=== PATIENT | male | born 1950 | race Caucasian/White ===

== ENCOUNTER 2018-07-20 07:29 | Day surgery (SDC) | payer MEDICARE, OTHER, SELFPAY ==
--- NOTE | 2018-07-20 | PATH_ITS ---
[facility] Accession Number: [id number] . 01 Material submitted: . ASCENDING COLON POLYP AT 70 . 02 Diagnosis: Ascending Colon, Polyp at 70, Biopsy: Tubular adenoma. MRV/07/22/2018 . 02 Electronically signed: . Karen Bueno MD, Pathologist NPI- [id number] . 01 Gross description: . ASCENDING COLON POLYP AT 70: Received in formalin is 1 fragment(s) of bey, soft tissue measuring 0.3 x 0.3 x 0.2 cm submitted entirely in 1 cassette(s) /CKI /CKI . 02 Pathologist provided ICD-10: D12.2 . 02 CPT . 993001 Performed at: 01 [facility] [address] [id number] MD Tom Barahona MD Phone: [phone] Performed at: 02 [facility] [address] [place], [place] [id number] MD Erasmo Sutton MD Phone: [phone]
[2018-07-20 08:08] VITALS: BP 144/83; PULSE 52; RESP 16; TEMP 35.7; O2SAT 99; BMI 26.6
[2018-07-20] MEDS: SODIUM CHLORIDE 0.9% 1,000 ML 200 ML IV (08:20)
--- NOTE | 2018-07-20 08:56 | PM.HP.1 ---
History of Present Illness Date Patient Seen: 07/20/18 Time Patient Seen: 08:56 Chief complaint: 90052 Narrative: 67-year-old male who last underwent colonoscopy 10 years ago for surveillance purposes. He reports that the study was normal at that time. He presents now for surveillance. On further history today he has no new gastrointestinal complaints. Denies any nausea, vomiting, loss of appetite, unexplained weight loss, abdominal pain, change in bowel habits, diarrhea, constipation, melena, hematochezia, or bright red blood per rectum. Patient History Medical History Chronic back pain (Chronic 1987) Coronary artery disease (Chronic 1996) Generalized headaches (Chronic 1994) Gout (Chronic 2013) Hearing loss (Chronic 1989) Hypertension (Chronic 1996) Sleep apnea (Chronic 2016) Tinnitus of both ears (Chronic 1994) Chickenpox (Resolved) Measles (Resolved) Mumps (Resolved) Surgical History History of colonoscopy (Acute) Family & Social History Family History: Reviewed 07/20/18 by Ambrose Gonzalez MD Social History: household members spouse Meds Home Medications Medication Instructions Recorded Confirmed Type aspirin 81 mg PO QDAY #0 02/26/18 07/20/18 History atorvastatin 80 mg PO QDAY #0 02/26/18 07/20/18 History cholecalciferol (vitamin D3) 5,000 unit PO QDAY #0 02/26/18 07/20/18 History cyclobenzaprine 10 mg PO DAILY #0 02/26/18 07/20/18 History hydrochlorothiazide 25 mg PO QDAY #0 02/26/18 07/20/18 History ibuprofen 800 mg PO DAILY #0 02/26/18 07/20/18 History pneumoc 13-vianney conj-dip cr(PF) 0.5 ml IM X1 #1 ea 02/26/18 Rx [Prevnar 13 (PF)] varicella-zoster gE-AS01B (PF) 0.5 ml IM X1 #1 ea 02/26/18 Rx [Shingrix (PF)] verapamil 240 mg PO QDAY #0 02/26/18 07/20/18 History Allergies Allergy/AdvReac Type Severity Reaction Status Date / Time No Known Allergies Allergy Uncoded 07/20/18 07:48 Review of Systems Review of Systems All systems reviewed & are unremarkable except as noted in HPI and below Exam Vital Signs (past 8 hours): - 07/20/18 08:08 Temperature 96.2 F L Pulse Rate 52 L Respiratory Rate 16 Blood Pressure 144/83 H Pulse Oximetry 99 Oxygen Delivery Method Room Air Narrative Exam Narrative: Well-nourished well-developed male in no acute distress lying comfortably in the gurney. Alert oriented x3. is at the bedside for my entire visit. Sclera nonicteric Neck is supple Chest clear to auscultation. Regular rate and rhythm. Abdomen soft, nondistended, nontender. Extremities show no clubbing, cyanosis, or edema Objective Labs Labs: No recent radiographic or laboratory studies for review Assessment & Plan Plan: Assessment/Plan Narrative: 67-year-old male require colorectal surveillance since it has been 10 years from his prior examination. Colonoscopy is currently recommended. Technical details of the procedure were discussed. Risks, benefits, alternatives were explained. Risks including but not limited to sedation, aspiration, bleeding, pain, missed lesion, incomplete examination, need for further radiographic studies, colonic perforation, need for major abdominal surgery, and all attendant risks of major surgery were explained at length. All questions were answered to his satisfaction, and the patient voiced understanding. Consent was placed on the chart. We will proceed as above.
--- NOTE | 2018-07-20 08:59 | PM.PREOP ---
Pre-operative Note Interval Note Pre-op Check: Yes History & Physical Reviewed by Physician, Yes Exam Performed and Yes History & Physical exam performed today by Physician Changes: No H&P completed within 30 days and has changed as indicated here:: Patient seen and examined today. History physical examination documented and placed on the chart. Proceed with colonoscopy today as planned. ASA Class (for procedural sedation): II
[2018-07-20] MEDS: MIDAZOLAM 5 MG/5 ML VIAL IV (09:00)
[2018-07-20] MEDS: fentaNYL 250 MCG/5 ML INJ IV (09:00)
--- NOTE | 2018-07-20 09:24 | PM.OP.ENDO ---
Operative Date/Time/Diagnoses Date of procedure: 07/20/18 Time of procedure: 09:25 Pre-op diagnosis: Colorectal screening Post-op diagnosis: other (Colon polyp) Procedure & Clinicians Study performed: 1. Sedation per surgeon 2. Colonoscopy with cold forceps polypectomy Same procedure as scheduled: Yes Indications: 67-year-old male with prior colonoscopy 10 years ago who presents for colorectal surveillance. Colonoscopy is once again recommended. Surgeon: Ambrose Gonzalez Procedure Notes SCOAP/Timeout: Yes Procedure in detail: After obtaining informed consent, the patient was brought to the GI suite and placed in the left lateral decubitus position on the examination table. After placement of appropriate monitors, the patient was given incremental doses of Versed and Fentanyl until an appropriate level of sedation was achieved. A time out was held per SCOAP protocol. A digital rectal examination was performed and did not reveal any masses or obstructing lesions. The colonoscope was gently passed into the patient's anus and the entire colon navigated to the level of the cecum with minimal difficulty. Once in the cecum, the scope was withdrawn being sure to go before and beyond all mucosal folds and prominences and get an excellent examination. The findings are noted above. At the level of the rectal vault, the scope was retroflexed and the internal anal canal was examined. The scope was straightened and air aspirated from the colon. The instrument was removed from the patient's body and the procedure was concluded. The patient was allowed to awaken from sedation without difficulty and taken to the post-anesthesia care unit in good condition. Scope withdrawal time: 8:34 min Sedation minutes: 26 Findings: polyp (Ascending colon polyp at 70 cm) Specimen(s): other (Ascending colon polyp at 70 cm) Complications: none Recommendations: Colonscopy in 5 years and Will call with biopsy results Plan for aftercare: Discharged home Follow up: as needed Disposition: PACU
[2018-07-20 09:31] VITALS: BP 112/67; PULSE 53; RESP 14; TEMP 36.2; O2SAT 96
[2018-07-20 09:35] VITALS: BP 106/66; PULSE 48; RESP 9; O2SAT 94
[2018-07-20 09:41] VITALS: BP 103/65; PULSE 58; RESP 15; TEMP 36.6; O2SAT 95
[2018-07-20 09:48] VITALS: BP 106/70; PULSE 59; RESP 15; TEMP 36.7; O2SAT 94
[2018-07-20 10:13] VITALS: BP 122/74; PULSE 53; RESP 16; TEMP 36.1; O2SAT 99
== END 2018-07-20 10:20 | disposition home or self-care (01) ==
PROVIDERS: PCP Family Medicine; Visit Provider Surgery
PROC: 0DJD8ZZ Inspection of Lower Intestinal Tract, Via Natural or Artificial Opening Endoscopic (ICD-10-PCS; CPT 45378; principal; 2018-07-20 08:45)
DX: Z12.11 Encounter for screening for malignant neoplasm of colon (principal); D12.2 Benign neoplasm of ascending colon
CPT/HCPCS: 45380; 88305; 99152; 99153; J2250; J3010

== ENCOUNTER 2020-01-30 14:50 | Emergency (ER) | payer MEDICARE, OTHER, SELFPAY ==
[2020-01-30 14:55] VITALS: BP 177/85; PULSE 66; RESP 20; TEMP 36.1; O2SAT 96
--- NOTE | 2020-01-30 16:29 | DI.RAD.S_ITS ---
PROCEDURE: XR LUMBAR SPINE 2-3V INDICATIONS: pain TECHNIQUE: 3 views of the lumbar spine were acquired. COMPARISON: [facility], , -SPINE 2-3 VIEWS, 02/06/2007, 9:03. FINDINGS: Bones: 6 [id number] vertebrae are present. There is normal bony alignment. No vertebral body compression fractures. No suspicious bony lesions. Degenerative changes are present in the lower lumbar spine including intervertebral disc space narrowing, endplate sclerosis, osteophytosis, and facet sclerosis. These findings are new when compared with the prior plain film dated 02/06/07. Soft tissues: Overlying bowel gas pattern is normal. Trace atheromatous calcifications are present within the abdominal aorta. IMPRESSION: Mild degenerative change and aortic atherosclerosis, both of which have are new when compared with the study from 2006. Dictated by: Jessica Moody M.D. on 01/30/2020 at 15:54 Approved by: Jessica Moody M.D. on 01/30/2020 at 15:58
[2020-01-30] MEDS: CYCLOBENZAPRINE 10 MG TABLET PO (16:51)
[2020-01-30] MEDS: KETOROLAC 60 MG/2 ML VIAL 30 MG IM (16:51)
[2020-01-30] MEDS: LIDOCAINE PATCH 1 EACH ADH..PATCH TOP (16:56)
[2020-01-30] MEDS: HYDROCODONE/ACET 5/325 TABLET 1 TAB PO (17:39)
--- NOTE | 2020-01-30 18:03 | ED_ITS ---
HPI - Back Pain/Injury <Savanna Fuentes, ORTHOTICS PROSTHETICS ASSISTANT-BC - Last Filed: 01/30/20 18:52> General Chief Complaint: Back Pain/Injury Stated Complaint: Lower Back Pain Time Seen by Provider: 01/30/20 16:17 Source: patient and family Mode of arrival: Ambulatory Limitations: no limitations History of Present Illness HPI Narrative: The patient is a 69-year-old male nonsmoker with history of chronic midline back pain who presents with a chief complaint of lower back pain. He states it started getting bed 2 days ago, when he bent over from his chair to pick something up. He denies any incontinence of bowel, incontinence of bladder, saddle anesthesia, numbness or tingling. He was taking Flexeril and ibuprofen for the past 2 days, but has not had anything so far today. He states that this is recurrent, but he has had issues with this before. However it is usually much improved after single dose of Flexeril. He states it is worse with movement, better when he is lying flat on his back with his knees bent. He has no fever, no history of cancer Related Data Home Medications Medication Instructions Recorded Confirmed cholecalciferol (vitamin D3) 5,000 unit PO QDAY #0 02/26/18 07/31/18 Previous Rx's Medication Instructions Recorded pneumoc 13-vianney conj-dip cr(PF) 0.5 ml IM X1 #1 ea 02/26/18 [Prevnar 13 (PF)] varicella-zoster gE-AS01B (PF) 0.5 ml IM X1 #1 ea 02/26/18 [Shingrix (PF)] aspirin 81 mg tablet,delayed 81 mg PO QDAY #90 tab 08/02/18 release atorvastatin 80 mg tablet 80 mg PO QDAY #90 tab 08/02/18 cyclobenzaprine 10 mg tablet 10 mg PO DAILY PRN #90 tab 08/02/18 hydrochlorothiazide 25 mg tablet 25 mg PO QDAY #90 tab 08/02/18 ibuprofen 800 mg tablet 800 mg PO DAILY PRN #90 tab 08/02/18 verapamil 240 mg tablet,extended 240 mg PO QDAY #90 tab 08/07/18 release hydrocodone-acetaminophen [[place]] 1 tab PO Q4-6H PRN #10 tab 01/30/20 ketorolac 10 mg PO TID PRN #14 tab 01/30/20 Allergies Allergy/AdvReac Type Severity Reaction Status Date / Time No Known Allergies Allergy Verified 07/31/18 11:58 Review of Systems <RADHA Romero - Last Filed: 01/30/20 18:52> Review of Systems Narrative: GENERAL: Denies chills, fatigue, malaise, fever, sweats. HEENT: Denies sinus pain, ear pain, sore throat, difficulty swallowing, dizziness. RESPIRATORY: Denies dyspnea, cough, wheezing, hemoptysis, sputum. CARDIOVASCULAR: Denies chest pain, palpitations, orthopnea, edema, GASTROINTESTINAL: Denies nausea, vomiting, abdominal pain, diarrhea, constipation, melena. : Denies dysuria, frequency, incontinence, hematuria, urinary retention. MUSCULOSKELETAL: See HPI SKIN: Denies rash, skin lesions, or other NEUROLOGIC: Denies weakness, headache, numbness, change in speech, confusion, seizures, incoordination. PSYCHIATRIC: No concerning psychosocial issues. 12 point review of systems is negative except for those stated above Patient History <RADHA Romero - Last Filed: 01/30/20 18:52> Medical History Chickenpox (Resolved) Chronic back pain (Chronic 1987) Chronic midline low back pain without sciatica (02/26/18) Coronary artery disease (Chronic 1996) Essential hypertension (02/26/18) Generalized headaches (Chronic 1994) Gout (Chronic 2013) Hearing loss (Chronic 1989) Hypertension (Chronic 1996) Measles (Resolved) Mumps (Resolved) Obstructive sleep apnea syndrome (02/26/18) Pure hypercholesterolemia (02/26/18) Sleep apnea (Chronic 2016) Tinnitus of both ears (Chronic 1994) Surgical History History of colonoscopy (Acute) Family History Father High cholesterol Mother No problems noted. Grandfather No problems noted. Grandmother No problems noted. Grandfather No problems noted. Grandmother No problems noted. Social History household members: spouse Smoking Status: Never smoker Smoking Status: Never smoker Exam <RADHA Romero - Last Filed: 01/30/20 18:52> Narrative Exam Narrative: GENERAL: This is a well-nourished, well-developed patient, appears uncomfortable HEAD: Atraumatic. Normocephalic. No temporal or scalp tenderness. EYES: Pupils equal round and reactive. Extraocular motions intact. No scleral i cterus. No injection or drainage. ENT: Nose without bleeding, purulent drainage or septal hematoma. Throat without erythema, tonsillar hypertrophy or exudate. Uvula midline. Airway patent. NECK: Trachea midline. No JVD or lymphadenopathy. Supple, nontender, no meningeal signs. CARDIOVASCULAR: Regular rate and rhythm RESPIRATORY: Clear to auscultation. Breath sounds equal bilaterally. No wheezes, rales, or rhonchi. No cough. No increased respiratory effort. No accessory muscle use. GASTROINTESTINAL: Abdomen soft, non-tender, nondistended. No hepato- splenomegaly, or palpable masses. No guarding. EXTREMITIES: No clubbing, cyanosis, or edema. No joint tenderness, effusion, or edema noted. BACK: No pain to cervical or thoracic spine palpation. Pain to lumbar spine palpation of paraspinal muscle palpation no palpable without deformity or crepitance. No flank tenderness. NEURO: AOx3. Interactive. Age appropriate. Strength is equal upper lower extremities bilaterally. Sensation intact all extremities. SKIN: No rash or erythema. Initial Vital Signs Initial Vital Signs: Vital Signs Temperature 96.9 F L 01/30/20 14:55 Pulse Rate 66 01/30/20 14:55 Respiratory Rate 01/30/20 14:55 Blood Pressure 177/85 H 01/30/20 14:55 Pulse Oximetry 96 01/30/20 14:55 <Annmarie Bahena MD - Last Filed: 01/31/20 07:14> Initial Vital Signs Initial Vital Signs: Vital Signs Temperature 96.9 F L 01/30/20 14:55 Pulse Rate 66 01/30/20 14:55 Respiratory Rate 01/30/20 14:55 Blood Pressure 177/85 H 01/30/20 14:55 Pulse Oximetry 96 01/30/20 14:55 Scores <CARMEN Romero - Last Filed: 01/30/20 18:52> GCS Alberto coma scale eye opening: Spontaneous Alberto coma scale verbal response: Orientated Alberto coma scale motor response: Obey commands Slaughters coma scale total score: 15 Course <ROYCE Romero-CHAYO - Last Filed: 01/30/20 18:52> Orders Ordered: Discontinued Medications Hydrocodone Bitart/Acetaminophen ([place] 5/325) 1 tab PO NOW ONE Stop: 01/30/20 17:30 Last Admin: 01/30/20 17:39 Dose: 1 tab Documented by: AMARILIS Hydrocodone Bitart/Acetaminophen (Vicodin 5/325 Prepack) 1 bottle MISC SEEINSTR ONE Stop: 01/30/20 18:16 Last Admin: 01/30/20 18:31 Dose: 1 bottle Documented by: JOHN Cyclobenzaprine HCl (Flexeril) 10 mg PO NOW ONE Stop: 01/30/20 16:30 Last Admin: 01/30/20 16:51 Dose: 10 mg Documented by: JOHN Ketorolac Tromethamine (Toradol) 30 mg IM NOW ONE Stop: 01/30/20 16:30 Last Admin: 01/30/20 16:51 Dose: 30 mg Documented by: JOHN Ketorolac Tromethamine (Toradol 10mg Prepack) 1 bottle MISC SEEINSTR ONE Stop: 01/30/20 18:16 Last Admin: 01/30/20 18:31 Dose: 1 bottle Documented by: JOHN Lidocaine (Lidoderm) 1 each TOP NOW ONE Stop: 01/30/20 16:30 Last Admin: 01/30/20 16:56 Dose: 1 each Documented by: JOHN Vital Signs Vital signs: Vital Signs - 8 hr 01/30/20 14:55 01/30/20 18:43 Temperature 96.9 F L Pulse Rate 66 87 Respiratory Rate 20 16 Blood Pressure 177/85 H 176/88 H Pulse Oximetry 96 98 <Annmarie Bahena MD - Last Filed: 01/31/20 07:14> Orders Ordered: Discontinued Medications Hydrocodone Bitart/Acetaminophen ([place] 5/325) 1 tab PO NOW ONE Stop: 01/30/20 17:30 Last Admin: 01/30/20 17:39 Dose: 1 tab Documented by: AMARILIS Hydrocodone Bitart/Acetaminophen (Vicodin 5/325 Prepack) 1 bottle MISC SEEINSTR ONE Stop: 01/30/20 18:16 Last Admin: 01/30/20 18:31 Dose: 1 bottle Documented by: JOHN Cyclobenzaprine HCl (Flexeril) 10 mg PO NOW ONE Stop: 01/30/20 16:30 Last Admin: 01/30/20 16:51 Dose: 10 mg Documented by: JOHN Ketorolac Tromethamine (Toradol) 30 mg IM NOW ONE Stop: 01/30/20 16:30 Last Admin: 01/30/20 16:51 Dose: 30 mg Documented by: JOHN Ketorolac Tromethamine (Toradol 10mg Prepack) 1 bottle MISC SEEINSTR ONE Stop: 01/30/20 18:16 Last Admin: 01/30/20 18:31 Dose: 1 bottle Documented by: JOHN Lidocaine (Lidoderm) 1 each TOP NOW ONE Stop: 01/30/20 16:30 Last Admin: 01/30/20 16:56 Dose: 1 each Documented by: JOHN Vital Signs Vital signs: Vital Signs - 8 hr 01/30/20 14:55 01/30/20 18:43 Temperature 96.9 F L Pulse Rate 66 87 Respiratory Rate 20 16 Blood Pressure 177/85 H 176/88 H Pulse Oximetry 96 98 MDM - Back Pain/Injury <RADHA Romero - Last Filed: 01/30/20 18:52> Imaging Data Lumbar x-ray: Radiologist's Impression: [address] [place] [id number] XRay Report Signed Patient: Fracisco Jacobs LMR#: [id number] : [id number]:[id number] Age/Sex: 69 / MDate of Service: 01/30/20 Loc: ED Accession Number: [id number] Procedure: XR lumbar spine 2-3V Ordering Provider: Savanna Fuentes PROCEDURE: XR LUMBAR SPINE 2-3V INDICATIONS: pain TECHNIQUE: 3 views of the lumbar spine were acquired. COMPARISON: [facility], , L-SPINE 2-3 VIEWS, 02/06/2007, 9:03. FINDINGS: Bones: 6 [id number]-htccegy vertebrae are present. There is normal bony alignment. No vertebral body compression fractures. No suspicious bony lesions. Degenerative changes are present in the lower lumbar spine including intervertebral disc space narrowing, endplate sclerosis, osteophytosis, and facet sclerosis. These findings are new when compared with the prior plain film dated 02/06/07. Soft tissues: Overlying bowel gas pattern is normal. Trace atheromatous calcifications are present within the abdominal aorta. IMPRESSION: Mild degenerative change and aortic atherosclerosis, both of which have are new when compared with the study from 2006. Dictated by: Jessica Moody M.D. on 01/30/2020 at 15:54 Approved by: Jessica Moody M.D. on 01/30/2020 at 15:58 MDM Narrative Medical decision making narrative: The patient is a 69-year-old male who presents with a chief complaint of lower back pain. He has no red flag symptoms of incontinence of bowel, incontinence of bladder saddle anesthesia and states he understands that these return precautions. He felt much improved after the above-stated therapies. I discussed at length coming back to the emergency department for any acute concerns. Discussed follow-up with primary care provider. Discussed that [place] can be constipating sedating, Flexeril can be sedating, do not combine Toradol with any other anti-inflammatories such as ibuprofen or Aleve. Encourage PCP follow-up in the next few days. Patient have no questions or concerns upon discharge and state understanding of return precautions as well as follow-up care. Discharge Plan Departure Patient Disposition: Home Clinical Impression: Chronic midline low back pain without sciatica Discharge Date/Time: 01/30/20 18:44 Instructions: DI for Low Back Pain, DI for Back Spasm, DI for Back Strain or Sprain Activity Restrictions/Additional Instructions: Thank you for trusting us with your care today. Please follow-up with primary care provider as I discussed. I have sent 2 prescriptions to [facility] in [place]. You can pick these up tomorrow. We have sent you home with take-home packs because all the pharmacies are closed locally. I also suggest continuing your cyclobenzaprine Please come back to the emergency department for any acute concerns such as sudden onset incontinence of bowel, incontinence of bladder, numbness in your groin I have given you a prescription of Toradol. This is an NSAID. Do not combine it with other NSAIDs such as Aleve or ibuprofen. I suggest taking it with some food, as it can irritate your stomach. I have given you a prescription of a narcotic for pain. Be aware that this can be constipating and sedating. I encouraged taking with a stool softener, pushing fluids and fiber. Do not take and drive, operate heavy machinery, etc. Do not combine it with any other sedating substances such as alcohol. The combination of narcotics and alcohol and/or other sedatives can be lethal. Please be aware that we do not provide refills of controlled substances in the emergency department. Please follow up with your primary care provider. Prescriptions: New ketorolac 10 mg tablet 10 mg PO TID PRN (Reason: pain) Qty: 14 RF: 0 hydrocodone-acetaminophen [[place]] 5-325 mg tablet 1 tab PO Q4-6H PRN (Reason: pain) Qty: 10 RF: 0 No Action aspirin 81 mg tablet,delayed release (DR/EC) 81 mg PO QDAY Qty: 90 RF: 3 atorvastatin 80 mg tablet 80 mg PO QDAY Qty: 90 RF: 3 cyclobenzaprine 10 mg tablet 10 mg PO DAILY PRN (Reason: muscle spasm) Qty: 90 RF: 3 hydrochlorothiazide 25 mg tablet 25 mg PO QDAY Qty: 90 RF: 3 ibuprofen 800 mg tablet 800 mg PO DAILY PRN (Reason: pain) Qty: 90 RF: 3 cholecalciferol (vitamin D3) 5,000 UNIT capsule 5,000 unit PO QDAY Qty: 0 RF: 0 pneumoc 13-vianney conj-dip cr(PF) [Prevnar 13 (PF)] 0.5 ML syringe 0.5 ml IM X1 Qty: 1 RF: 0 varicella-zoster gE-AS01B (PF) [Shingrix (PF)] 50 MCG/0.5 ML suspension for reconstitution 0.5 ml IM X1 Qty: 1 RF: 0 verapamil 240 mg tablet extended release 240 mg PO QDAY Qty: 90 RF: 3 Referrals: Stephen Acevedo MD [Primary Care Provider] -
[2020-01-30] MEDS: HYDROCODONE/ACET 5/325 PREPACK 1 BOTTLE MISC (18:31)
[2020-01-30] MEDS: KETOROLAC 10MG PREPACK 1 BOTTLE MISC (18:31)
[2020-01-30 18:43] VITALS: BP 176/88; PULSE 87; RESP 16; O2SAT 98
== END 2020-01-30 18:44 | disposition home or self-care (01) ==
PROVIDERS: Emergency Provider Nurse Practitioner Family; PCP Family Medicine
DX: M54.5 Low back pain (principal)
CPT/HCPCS: 72100; 96372; 99283; 99284; J1885

== ENCOUNTER 2023-10-26 14:28 | Emergency (ER) | payer MEDICARE, OTHER, SELFPAY ==
[2023-10-26 14:35] VITALS: BP 177/73; PULSE 54; RESP 16; TEMP 36.5; O2SAT 95; BMI 26.6
--- NOTE | 2023-10-26 15:06 | ED_ITS ---
HPI - Ear Problem <Annel Narvaez PA-C - Last Filed: 10/26/23 17:03> General Chief complaint: Ear Stated complaint: T-7 TOOK NAP WAS DEAF IN ONE EAR Time Seen by Provider: 10/26/23 15:01 Source: patient Mode of arrival: Ambulatory History of Present Illness HPI Narrative: Fracisco is a 72-year-old male who presents due to concern for loss of hearing in the right ear. He reports approximately 1 week ago he laid down to take a nap. He was in his usual state of health. When he woke up, he could no longer hear in his right ear. He wears hearing aids at baseline. He had no preceding upper respiratory illness or congestion. He has had no fever or chills. The next morning, he went to the urgent care clinic in [place]. He was prescribed Afrin, Flonase, prednisone 20 mg daily x5 days; he completed these medications without any change in his symptoms. He reports he hears a quiet ringing or a sound like the ocean in the right ear but does not hear any noise from outside or any noise with movement/palpation of the right ear. He does not have any pain, no ear drainage, no congestion or sore throat. He denies vertigo or lightheadedness or dizziness since this started. He denies change in mental status, balance or vision. He denies ipsilateral tinnitus. Denies recent head trauma or barotrauma. No eye pain or neck pain. No new medications (no ototoxic antibiotics, chemo). Related Data Home Medications Medication Instructions Recorded Confirmed cholecalciferol (vitamin D3) 125 5,000 unit PO QDAY ##0 02/26/18 07/31/18 mcg (5,000 unit) capsule Previous Rx's Medication Instructions Recorded pneumoc 13-[place]ian[place] conj-dip cr(PF) 0.5 0.5 ml IM X1 #1 ea 02/26/18 mL IM syringe (Prevnar 13 (PF)) varicella-zoster glycoE [id number] 0.5 ml IM X1 #1 ea 02/26/18 adj(PF) 50 mcg/0.5 mL IM susp, kit (Shingrix (PF)) aspirin 81 mg tablet,delayed 81 mg PO QDAY #90 tabs 08/02/18 release atorvastatin 80 mg tablet 80 mg PO QDAY #90 tabs 08/02/18 cyclobenzaprine 10 mg tablet 10 mg PO DAILY PRN muscle spasm 08/02/18 #90 tabs hydrochlorothiazide 25 mg tablet 25 mg PO QDAY #90 tabs 08/02/18 ibuprofen 800 mg tablet 800 mg PO DAILY PRN pain #90 tabs 08/02/18 verapamil 240 mg tablet,extended 240 mg PO QDAY #90 tabs 08/07/18 release hydrocodone 5 mg-acetaminophen 325 1 tab PO Q4-6H PRN pain #10 tabs 01/30/20 mg tablet ([place]) ketorolac 10 mg tablet 10 mg PO TID PRN pain #14 tabs 01/30/20 prednisone 20 mg tablet 60 mg (3 x 20 mg) PO DAILY #21 tabs 10/26/23 Allergies Allergy/AdvReac Type Severity Reaction Status Date / Time No Known Allergies Allergy Verified 10/26/23 14:35 Review of Systems <Annel Narvaez PA-C - Last Filed: 10/26/23 17:03> Review of Systems ROS Unobtainable: All systems reviewed & are unremarkable except as noted in HPI and below Patient History <Annel Narvaez PA-C - Last Filed: 10/26/23 17:03> Medical History (Updated 10/26/23 @ 15:32 by Annel Narvaez PA-C) Chronic back pain (1987) Gout (2013) Generalized headaches (1994) Sleep apnea (2016) Chickenpox Measles Mumps Hearing loss (1989) Tinnitus of both ears (1994) Coronary artery disease (1996) Hypertension (1996) Pure hypercholesterolemia (02/26/18) Obstructive sleep apnea syndrome (02/26/18) Essential hypertension (02/26/18) Chronic midline low back pain without sciatica (02/26/18) Surgical History History of colonoscopy Family History Father High cholesterol Mother No problems noted. Grandfather No problems noted. Grandmother No problems noted. Grandfather No problems noted. Grandmother No problems noted. Social History household members: spouse Smoking Status: Never smoker Smoking Status: Never smoker Exam <Annel Narvaez PA-C - Last Filed: 10/26/23 17:03> Narrative Exam Narrative: GENERAL: 72 year old patient appears stated age. Well-developed patient, in no distress. NEURO: Patient is alert and oriented x3 and with normal mood and affect. Cranial nerves II through XII are intact and there is no appreciable numbness or weakness. HEAD: Atraumatic. Normocephalic. EYES: Pupils equal round and reactive. Extraocular motions intact. No scleral icterus. No injection or drainage. ENT: Nose without bleeding or purulent drainage. TMs full, clear. No erythema, drainage, cerumen impaction. Throat without erythema, tonsillar hypertrophy or exudate. Airway patent. RESPIRATORY: No distress or increased work of breathing GASTROINTESTINAL: Abdomen soft, non-tender, nondistended. SKIN: No rash or erythema of visible areas Initial Vital Signs Initial Vital Signs: Vital Signs Temperature 97.7 F 10/26/23 14:35 Pulse Rate 54 L 10/26/23 14:35 Respiratory Rate 16 10/26/23 14:35 Blood Pressure 177/73 H 10/26/23 14:35 Pulse Oximetry 95 10/26/23 14:35 Oxygen Delivery Method Room Air 10/26/23 14:35 <Jasper Pereira DO - Last Filed: 10/26/23 17:15> Initial Vital Signs Initial Vital Signs: Vital Signs Temperature 97.7 F 10/26/23 14:35 Pulse Rate 54 L 10/26/23 14:35 Respiratory Rate 16 10/26/23 14:35 Blood Pressure 177/73 H 10/26/23 14:35 Pulse Oximetry 95 10/26/23 14:35 Oxygen Delivery Method Room Air 10/26/23 14:35 Course <Annel Narvaez PA-C - Last Filed: 10/26/23 17:03> Consultations Consultation #1: [id number]: advised 60mg prednisone daily x5 days, then taper. Have him schedule with ENT this week. Dr. Mcnally has his information. No need for imaging today, will likely get outpatient MRI. Vital Signs Vital signs: Vital Signs - 8 hr 10/26/23 14:35 10/26/23 15:42 Temperature 97.7 F Pulse Rate 54 L Respiratory Rate 16 Blood Pressure 177/73 H 152/68 H Pulse Oximetry 95 Oxygen Delivery Method Room Air <Jasper DarioclaudetteDO - Last Filed: 10/26/23 17:15> Vital Signs Vital signs: Vital Signs - 8 hr 10/26/23 14:35 10/26/23 15:42 Temperature 97.7 F Pulse Rate 54 L Respiratory Rate 16 Blood Pressure 177/73 H 152/68 H Pulse Oximetry 95 Oxygen Delivery Method Room Air Medical Decision Making <Annel Narvaez PA-C - Last Filed: 10/26/23 17:03> MDM Narrative Medical decision making narrative: Multiple etiologies for patient's symptoms considered including, but not limited to: Cerumen impaction, ear infection, ototoxic drug, autoimmune disease, meningitis, CVA Patient is very well-appearing with a normal neuro exam and normal ear exam. Suspect sudden onset sensorineural hearing loss. Discussed case with Dr. Mcnally, [facility], who suggests high-dose steroids and follow up with ENT clinic this week. Discussed this with the patient, who is agreeable. He understands how to contact the clinic and will call tomorrow to make an appointment. Patient's symptoms improved over duration of stay with above-stated therapies. Findings and discharge diagnosis discussed with patient/family followed by verbalization of understanding Return precautions discussed with patient/family whom verbalize understanding of diagnosis and plan Discharge Plan Departure Patient Disposition: Home Clinical Impression: Sudden-onset sensorineural hearing loss Instructions: Deafness Activity Restrictions/Additional Instructions: *You have been diagnosed with sudden sensorineural hearing loss. Dr. Mcnally, of [facility], was consulted and recommended taking 60 mg of prednisone for 5 days and then tapering off. I have sent this prescription to [facility]. You need to call [facility] on Friday morning and schedule an appointment. Please let them know that you were seen in the emergency department over the weekend and Dr. Mcnally wanted you scheduled this week. *What to do: *Please continue to take your regular medications as directed. [x] New medication prescriptions sent to your pharmacy: [facility] [ ] New medication written as a paper prescription [ ] No new medications given *Please follow up with your primary care provider in 2-3 days, call for an appointment. Let them know you were seen in the Emergency Department and that we ask that you be seen in follow up. We will electronically transmit a record of today's note if your PCP is in our system *If you do not have a primary care provider please contact the [facility] Resource line at [phone]. They will ask some questions about your medical history and help get you set up with a doctor in the community. *Return to Emergency Department if you should have any new, worsening or concerning symptoms, such as [fever greater than 101 F, shaking chills, worsening pain, persistent vomiting or other concerning symptoms]. Prescriptions: New prednisone 20 mg tablet 60 mg PO DAILY Qty: 21 0RF Rx Instructions: 3 tabs daily x5 days, then 2 tabs daily x2 days, then 1 tab daily x2 days, then stop No Action aspirin 81 mg tablet,delayed release (DR/EC) 81 mg PO QDAY Qty: 90 3RF atorvastatin 80 mg tablet 80 mg PO QDAY Qty: 90 3RF cyclobenzaprine 10 mg tablet 10 mg PO DAILY PRN (Reason: muscle spasm) Qty: 90 3RF hydrochlorothiazide 25 mg tablet 25 mg PO QDAY Qty: 90 3RF ibuprofen 800 mg tablet 800 mg PO DAILY PRN (Reason: pain) Qty: 90 3RF cholecalciferol (vitamin D3) 5,000 UNIT capsule 5,000 unit PO QDAY Qty: 0 pneumoc 13-vian[place] conj-dip cr(PF) [Prevnar 13 (PF)] 0.5 ML syringe 0.5 ml IM X1 Qty: 1 0RF varicella-zoster [id number] (PF) [Shingrix (PF)] 50 MCG/0.5 ML suspension for reconstitution 0.5 ml IM X1 Qty: 1 0RF verapamil 240 mg tablet extended release 240 mg PO QDAY Qty: 90 3RF Rx Instructions: Take one tablet once a day. ketorolac 10 mg tablet 10 mg PO TID PRN (Reason: pain) Qty: 14 0RF hydrocodone-acetaminophen [[place]] 5-325 mg tablet 1 tab PO Q4-6H PRN (Reason: pain) Qty: 10 0RF Referrals: Stephen Acevedo MD [Primary Care Provider] - Jasepr Mcnally MD [Physician] - Stand Alone Forms: Patient Portal/API ED Sign-out <Jasper Pereira DO - Last Filed: 10/26/23 17:15> Cosign ED Attending Cosignature Attestation: Dr Pereira Co-Sign Statement: I was available for consultation during this patient's emergency department visit. This chart is signed by myself for a dministrative purposes only. I did not have direct contact with this patient during this visit. They were seen independently by the [facility].
[2023-10-26 15:42] VITALS: BP 152/68
== END 2023-10-26 15:47 | disposition home or self-care (01) ==
PROVIDERS: Emergency Provider Physician Assistant; PCP Family Medicine
DX: H90.41 Sensorineural hearing loss, unilateral, right ear, with unrestricted hearing on the contralateral side (principal)
CPT/HCPCS: 99281; 99283